=== PATIENT | female | born 1995 | race Caucasian/White ===

== ENCOUNTER 2017-01-25 20:46 | Emergency (ER) | payer OTHER ==
[~2017-01-25] VITALS: Ht 165.1 cm; Wt 61.4 kg
[2017-01-25 20:48] VITALS: BP 149/83; TEMP 98
[2017-01-25] MEDS ORDERED: ZOFRAN 4MG T4 MG/TAB PO (22:39)
[2017-01-25 22:45] VITALS: PULSE 61
== END 2017-01-25 22:50 | disposition home or self-care (01) ==
LOC: COL.ER 20:46
DX: G43.909 Migraine, unspecified, not intractable, without status migrainosus (principal)
CPT/HCPCS: J1885; J2765; J7030